=== PATIENT | male | born 1995 | race American Indian/Alaskan Native ===

== ENCOUNTER 2017-07-19 21:59 | Emergency (ER) | payer MEDICAID ==
[2017-07-20 01:26] LABS: Hemoglobin 15.4 gm/dl (11.8-15.2); Mean Corpuscular HGB Conc 33 % (32-34); Mean Corpuscular Hemoglobin 27 pg (28-32); Mean Corpuscular Volume 81 fl (84-94); Platelet Count 208 K/mm3 (140-440); Red Blood Count 5.79 M/mm3 (3.65-5.03); Red Cell Distribution Width 14.2 % (13.2-15.2)
[2017-07-20 01:43] LABS: Alanine Aminotransferase 12 units/L (7-56); Albumin 4.7 g/dL (3.9-5); BUN/Creatinine Ratio 14; Blood Urea Nitrogen 11 mg/dL (9-20); Calcium 9.3 mg/dL (8.4-10.2); Hemolysis Index 29
[2017-07-20 02:11] LABS: Basophils % (Manual) 0 % (0.0-1.8); Total Cells Counted 100
[2017-07-20 02:12] LABS: Platelet Estimate Consistent w Auto
[2017-07-20 02:29] LABS: Bilirubin,Urine NEG (Negative); Blood,Urine NEG (Negative); Color,Urine Yellow (Yellow); Mucus,Urine 3+ /HPF; Protein,Urine <15 mg/dL mg/dL (Negative); Urobilinogen,Urine < 2.0 mg/dL (<2.0)
[2017-07-20 06:11] VITALS: BP 116/75
[2017-07-20] MEDS ORDERED: NACL 0.9% 1000 ML 1,000 ML IV ONE (07:10)
[2017-07-20] MEDS ORDERED: NACL ONE (07:41)
--- NOTE | 2017-07-20 08:04 | Emergency Department Report ---
ED N/V/D HPI - General Chief complaint: Abdominal Pain Stated complaint: ABD PAIN/BLOOD IN STOOL Time Seen by Provider: 07/20/17 06:54 Source: patient Mode of arrival: Ambulatory Limitations: No Limitations - History of Present Illness Initial comments: 21-year-old male without any significant past medical history presents to the Hospital complaining of abdominal pain, nausea, and diarrhea for 3 days. Pain is moderate, cramping and stabbing, intermittent, in the lower abdomen. Worse palpation. No alleviating factors. Patient has been nauseated without vomiting. Yesterday patient had 3-4 episodes of diarrhea with bloody watery stools. Patient denies recent travel, recent antibiotics, fever, family history of IBS or inflammatory bowel disease, or sick contacts. Pt denies receptive anal intercourse - Related Data Previous Rx's Medication Instructions Recorded Last Taken Type Ciprofloxacin HCl [Cipro] 500 mg PO BID #20 tablet 07/20/17 Unknown Rx Promethazine [Phenergan TAB] 25 mg PO Q6HR PRN #15 tab 07/20/17 Unknown Rx metroNIDAZOLE [Flagyl] 500 mg PO Q8HR #30 tablet 07/20/17 Unknown Rx traMADol [Ultram 50 MG tab] 50 mg PO Q6HR PRN #20 tablet 07/20/17 Unknown Rx Allergies Allergy/AdvReac Type Severity Reaction Status Date / Time No Known Allergies Allergy Verified 07/20/17 07:45 ED Review of Systems ROS: Stated complaint: ABD PAIN/BLOOD IN STOOL Other details as noted in HPI Comment: All other systems reviewed and negative ED Past Medical Hx - Past Medical History Previous Medical History?: No - Surgical History Past Surgical History?: Yes Additional Surgical History: tonsils removed - Social History Smoking Status: Current Every Day Smoker Substance Use Type: None - Medications Home Medications: Home Medications Medication Instructions Recorded Confirmed Last Taken Type Ciprofloxacin HCl [Cipro] 500 mg PO BID #20 tablet 07/20/17 Unknown Rx Promethazine [Phenergan TAB] 25 mg PO Q6HR PRN #15 tab 07/20/17 Unknown Rx metroNIDAZOLE [Flagyl] 500 mg PO Q8HR #30 tablet 07/20/17 Unknown Rx traMADol [Ultram 50 MG tab] 50 mg PO Q6HR PRN #20 tablet 07/20/17 Unknown Rx ED Physical Exam - General Limitations: No Limitations - Other Other exam information: General: No limitations, patient is alert in no acute distress Head exam: Atraumatic, normocephalic Eyes exam: Normal appearance, pupils equal reactive to light, extraocular movements intact ENT: Moist mucous membrane, normal oropharynx Neck exam: Normal inspection, full range of motion, no meningismus nontender Respiratory exam: Clear to auscultation bilateral, no wheezes, rales, crackles Cardiovascular: Normal rate and rhythm, normal heart sounds Abdomen: Soft, nondistended, suprapubic tenderness, with normal bowel sounds, no rebound, or guarding Rectal: No external abnormalities, no hemorrhoids, no fissure, no stool on exam Extremity: Full range of motion normal inspection no deformity Back: Normal Inspection, full range of motion, no tenderness Neurologic: Alert, oriented x3, cranial nerves intact, no motor or sensory deficit Psychiatric: normal affect, normal mood Skin: Warm, dry, intact ED Course Vital Signs 07/20/17 07/20/17 07/20/17 01:02 04:24 06:10 Temperature 98.1 F 98.5 F Pulse Rate 80 79 84 Respiratory 18 18 18 Rate Blood Pressure 126/85 143/91 Blood Pressure 116/75 [Right] O2 Sat by Pulse 99 100 100 Oximetry 07/20/17 08:00 Temperature Pulse Rate Respiratory 18 Rate Blood Pressure Blood Pressure [Right] O2 Sat by Pulse Oximetry - Reevaluation(s) Reevaluation #1: 07/20/17 11:27 pain prior to d/c, [place] provided - Consultations Consultation #1: 07/20/17 10:10 case d/w Emely with GI, will consult with Attending ED Medical Decision Making - Lab Data Result diagrams: 07/20/17 01:06 07/20/17 01:06 Lab Results 07/20/17 07/20/17 07/20/17 Range/Units 01:06 01:06 01:54 WBC 10.2 (4.5-11.0) K/mm3 RBC 5.79 H (3.65-5.03) M/mm3 Hgb 15.4 H (11.8-15.2) gm/dl Hct 47.0 H (35.5-45.6) % MCV 81 L (84-94) fl MCH 27 L (28-32) pg MCHC 33 (32-34) % RDW 14.2 (13.2-15.2) % Plt Count 208 (140-440) K/mm3 Add Manual Diff Complete Total Counted 100 Seg Neuts % (Manual) 78.0 H (40.0-70.0) % Band Neutrophils % 0 % Lymphocytes % (Manual) 10.0 L (13.4-35.0) % Reactive Lymphs % (Man) 0 % Monocytes % (Manual) 6.0 (0.0-7.3) % Eosinophils % (Manual) 4.0 (0.0-4.3) % Basophils % (Manual) 0 (0.0-1.8) % Metamyelocytes % 2.0 % Myelocytes % 0 % Promyelocytes % 0 % Blast Cells % 0 % Nucleated RBC % Not Reportable Seg Neutrophils # Man 8.0 H (1.8-7.7) K/mm3 Band Neutrophils # 0.0 K/mm3 Lymphocytes # (Manual) 1.0 L (1.2-5.4) K/mm3 Abs React Lymphs (Man) 0.0 K/mm3 Monocytes # (Manual) 0.6 (0.0-0.8) K/mm3 Eosinophils # (Manual) 0.4 (0.0-0.4) K/mm3 Basophils # (Manual) 0.0 (0.0-0.1) K/mm3 Metamyelocytes # 0.2 K/mm3 Myelocytes # 0.0 K/mm3 Promyelocytes # 0.0 K/mm3 Blast Cells # 0.0 K/mm3 WBC Morphology Not Reportable Hypersegmented Neuts Not Reportable Hyposegmented Neuts Not Reportable Hypogranular Neuts Not Reportable Smudge Cells Not Reportable Toxic Granulation Not Reportable Toxic Vacuolation Not Reportable Dohle Bodies Not Reportable Pelger-Huet Anomaly Not Reportable Antelmo Rods Not Reportable Platelet Estimate Consistent w auto Clumped Platelets Not Reportable Plt Clumps, EDTA Not Reportable Large Platelets Not Reportable Giant Platelets Not Reportable Platelet Satelliting Not Reportable Plt Morphology Comment Not Reportable RBC Morphology Not Reportable Dimorphic RBCs Not Reportable Polychromasia Not Reportable Hypochromasia Not Reportable Poikilocytosis Not Reportable Anisocytosis Not Reportable Microcytosis Not Reportable Macrocytosis Not Reportable Spherocytes Not Reportable Pappenheimer Bodies Not Reportable Sickle Cells Not Reportable Target Cells Not Reportable Tear Drop Cells Not Reportable Ovalocytes Not Reportable Helmet Cells Not Reportable Simon-[place] Bodies Not Reportable [place] Rings Not Reportable Brant Cells Not Reportable Bite Cells Not Reportable Crenated Cell Not Reportable Elliptocytes Not Reportable Acanthocytes (Spur) Not Reportable Rouleaux Not Reportable Hemoglobin C Crystals Not Reportable Schistocytes Not Reportable Malaria parasites Not Reportable Luis Bodies Not Reportable Hem Pathologist Commnt No Sodium 141 (137-145) mmol/L Potassium 4.1 (3.6-5.0) mmol/L Chloride 100.4 (98-107) mmol/L Carbon Dioxide 26 (22-30) mmol/L Anion Gap 19 mmol/L BUN 11 (9-20) mg/dL Creatinine 0.8 (0.8-1.5) mg/dL Estimated GFR > 60 ml/min BUN/Creatinine Ratio 14 % Glucose 90 (75-100) mg/dL Calcium 9.3 (8.4-10.2) mg/dL Total Bilirubin 0.50 (0.1-1.2) mg/dL AST 18 (5-40) units/L ALT 12 (7-56) units/L Alkaline Phosphatase 90 (35-129) units/L Total Protein 7.6 (6.3-8.2) g/dL Albumin 4.7 (3.9-5) g/dL Albumin/Globulin Ratio 1.6 % Urine Color Yellow (Yellow) Urine Turbidity Clear (Clear) Urine pH 5.0 (5.0-7.0) Ur Specific [place] 1.025 (1.003-1.030) Urine Protein <15 mg/dl (Negative) mg/dL Urine Glucose (UA) Neg (Negative) mg/dL Urine Ketones Neg (Negative) mg/dL Urine Blood Neg (Negative) Urine Nitrite Neg (Negative) Urine Bilirubin Neg (Negative) Urine Urobilinogen < 2.0 (<2.0) mg/dL Ur Leukocyte Esterase Neg (Negative) Urine WBC (Auto) 2.0 (0.0-6.0) /HPF Urine RBC (Auto) 3.0 (0.0-6.0) /HPF Urine Mucus 3+ /HPF - Radiology Data Radiology results: report reviewed ct abd pelvis IV contrast FINDINGS: Lung bases: Normal. Liver: Normal. Biliary system: Normal. Pancreas: Normal. Spleen: Normal. Kidneys/ureters/bladder: Normal. Adrenal glands: Normal. Aorta: Normal. Intestines: The GI system is inadequately evaluated on this exam without oral contrast. There is no evidence for obstruction. There may be mild thickening of the rectum but again this is poorly evaluated without contrast agent in the rectum. The remaining bowel loops are grossly normal. Appendix: Normal. Pelvic viscera: Normal. Ascites: None. Adenopathy: None. Musculoskeletal: Normal. IMPRESSION: Limited exam. Question mild inflammation of the rectum. See above. - Medical Decision Making Bloody diarrhea Stool sample obtained with results pending Seen by GI and empiric in bodyaches Cipro and Flagyl for 10 days recommended - Differential Diagnosis gastroenteritis, enteritis, diverticulitis, appendicitis, inflammatory lucio Critical Care Time: No Critical care attestation.: If time is entered above; I have spent that time in minutes in the direct care of this critically ill patient, excluding procedure time. ED Disposition Clinical Impression: Rectal inflammation, Bloody diarrhea Disposition: TO HOME OR SELFCARE Is pt being admited?: No Does the pt Need Aspirin: No Condition: Stable Instructions: Rectal Bleeding (ED), Acute Diarrhea (ED) Additional Instructions: Take the medication as prescribed. Follow-up with the primary clinic or doctror provided. Follow-up with the GI doctor provided within 7-10 days. Return if symptoms worsen as indicated by your discharge instructions. Prescriptions: Ciprofloxacin HCl [Cipro] 500 mg PO BID #20 tablet metroNIDAZOLE [Flagyl] 500 mg PO Q8HR #30 tablet Promethazine [Phenergan TAB] 25 mg PO Q6HR PRN #15 tab PRN Reason: Nausea traMADol [Ultram 50 MG tab] 50 mg PO Q6HR PRN #20 tablet PRN Reason: Pain Referrals: JL POWELL MD [Primary Care Provider] - 3-5 Days [facility] [Provider Group] - 3-5 Days OLEKSANDR DORANTES MD [Staff Physician] - 7-10 days (GI doctor ) Time of Disposition: 11:32
--- NOTE | 2017-07-20 08:59 | Cat Scan Report ---
CT ABDOMEN PELVIS WITH CONTRAST: HISTORY: Lower abdominal pain, bloody stool. COMPARISON: none. TECHNIQUE: Helical CT in 1.25mm intervals following IV contrast. Sagittal and coronal reconstructions. FINDINGS: Lung bases: Normal. Liver: Normal. Biliary system: Normal. Pancreas: Normal. Spleen: Normal. Kidneys/ureters/bladder: Normal. Adrenal glands: Normal. Aorta: Normal. Intestines: The GI system is inadequately evaluated on this exam without oral contrast. There is no evidence for obstruction. There may be mild thickening of the rectum but again this is poorly evaluated without contrast agent in the rectum. The remaining bowel loops are grossly normal. Appendix: Normal. Pelvic viscera: Normal. Ascites: None. Adenopathy: None. Musculoskeletal: Normal. IMPRESSION: Limited exam. Question mild inflammation of the rectum. See above.
[2017-07-20] MEDS ORDERED: FLAGYL PO ONE (10:19)
[2017-07-20] MEDS ORDERED: LEVAQUIN PO ONE (10:19)
--- NOTE | 2017-07-20 10:36 | Gastroenterology Consultation ---
History of Present Illness - Reason for Consult Consult date: 07/20/17 rectal bleeding Requesting physician: ANTONIO ELLIOTT - History of Present Illness Patient is a 21 y/o male with no significant PMH who presented to ED with c/o abdominal pain, nausea, and diarrhea with bloody stools x [address] showed mild inflammation in the rectum. H/H stable (15.4/47.0). This morning pt was resting on stretcher w/o acute distress. VSS. He reports intermittent LLQ abd pain described as sharp non-radiating cramps and 2 BMs this am with scant amount of bright red blood. Reports no rectal pain, pain with defecation, or recent rectal trauma. Nausea is now improved. Denies fever, wt loss, CP, SOB, dizziness, vomiting, hematemesis, melena, or constipation. No recent abx therapy , travel, or ill contacts. Not taking any blood thinning medications. No hx or Fhx of IBD or colon cancer. No previous colonoscopy. Past History Past Medical History: No medical history Past Surgical History: tonsillectomy Social history: smoking Family history: no significant family history Medications and Allergies Allergies Allergy/AdvReac Type Severity Reaction Status Date / Time No Known Allergies Allergy Verified 07/20/17 07:45 Home Medications Medication Instructions Recorded Confirmed Last Taken Type No Known Home Medications [No 07/20/17 07/20/17 Unknown History Reported Home Medications] Review of Systems - Review of Systems All systems: negative Gastrointestinal: abdominal pain, nausea, hematochezia Exam - Constitutional Vital Signs: Temp Pulse Resp BP Pulse Ox 98.5 F 84 18 116/75 100 07/20/17 06:10 07/20/17 06:10 07/20/17 08:00 07/20/17 06:10 07/20/17 06:10 General appearance: no acute distress - EENT Eyes: PERRL, EOM intact ENT: hearing intact - Respiratory Respiratory: bilateral: CTA - Cardiovascular Rhythm: regular Heart Sounds: Present: S1 & S2 - Gastrointestinal General gastrointestinal: Present: soft, tender (mild LLQ TTP), non-distended, normal bowel sounds Rectal Exam: normal exam-external/orifice, normal rectal tone, other (no blood noted) - Integumentary Integumentary: Present: warm, dry - Neurologic Neurological: alert and oriented x3 - Labs CBC & Chem 7: 07/20/17 01:06 07/20/17 01:06 Lab Results: Laboratory Results - last 24 hr 07/20/17 07/20/17 07/20/17 01:06 01:06 01:54 WBC 10.2 RBC 5.79 H Hgb 15.4 H Hct 47.0 H MCV 81 L MCH 27 L MCHC 33 RDW 14.2 Plt Count 208 Add Manual Diff Complete Total Counted 100 Seg Neuts % (Manual) 78.0 H Band Neutrophils % 0 Lymphocytes % (Manual) 10.0 L Reactive Lymphs % (Man) 0 Monocytes % (Manual) 6.0 Eosinophils % (Manual) 4.0 Basophils % (Manual) 0 Metamyelocytes % 2.0 Myelocytes % 0 Promyelocytes % 0 Blast Cells % 0 Nucleated RBC % Not Reportable Seg Neutrophils # Man 8.0 H Band Neutrophils # 0.0 Lymphocytes # (Manual) 1.0 L Abs React Lymphs (Man) 0.0 Monocytes # (Manual) 0.6 Eosinophils # (Manual) 0.4 Basophils # (Manual) 0.0 Metamyelocytes # 0.2 Myelocytes # 0.0 Promyelocytes # 0.0 Blast Cells # 0.0 WBC Morphology Not Reportable Hypersegmented Neuts Not Reportable Hyposegmented Neuts Not Reportable Hypogranular Neuts Not Reportable Smudge Cells Not Reportable Toxic Granulation Not Reportable Toxic Vacuolation Not Reportable Dohle Bodies Not Reportable Pelger-Huet Anomaly Not Reportable Antelmo Rods Not Reportable Platelet Estimate Consistent w auto Clumped Platelets Not Reportable Plt Clumps, EDTA Not Reportable Large Platelets Not Reportable Giant Platelets Not Reportable Platelet Satelliting Not Reportable Plt Morphology Comment Not Reportable RBC Morphology Not Reportable Dimorphic RBCs Not Reportable Polychromasia Not Reportable Hypochromasia Not Reportable Poikilocytosis Not Reportable Anisocytosis Not Reportable Microcytosis Not Reportable Macrocytosis Not Reportable Spherocytes Not Reportable Pappenheimer Bodies Not Reportable Sickle Cells Not Reportable Target Cells Not Reportable Tear Drop Cells Not Reportable Ovalocytes Not Reportable Helmet Cells Not Reportable Simon-[place] Bodies Not Reportable [place] Rings Not Reportable Brant Cells Not Reportable Bite Cells Not Reportable Crenated Cell Not Reportable Elliptocytes Not Reportable Acanthocytes (Spur) Not Reportable Rouleaux Not Reportable Hemoglobin C Crystals Not Reportable Schistocytes Not Reportable Malaria parasites Not Reportable Luis Bodies Not Reportable Hem Pathologist Commnt No Sodium 141 Potassium 4.1 Chloride 100.4 Carbon Dioxide 26 Anion Gap 19 BUN 11 Creatinine 0.8 Estimated GFR > 60 BUN/Creatinine Ratio 14 Glucose 90 Calcium 9.3 Total Bilirubin 0.50 AST 18 ALT 12 Alkaline Phosphatase 90 Total Protein 7.6 Albumin 4.7 Albumin/Globulin Ratio 1.6 Urine Color Yellow Urine Turbidity Clear Urine pH 5.0 Ur Specific [place] 1.025 Urine Protein <15 mg/dl Urine Glucose (UA) Neg Urine Ketones Neg Urine Blood Neg Urine Nitrite Neg Urine Bilirubin Neg Urine Urobilinogen < 2.0 Ur Leukocyte Esterase Neg Urine WBC (Auto) 2.0 Urine RBC (Auto) 3.0 Urine Mucus 3+ Assessment and Plan 1.rectal bleeding 2.abd pain (LLQ) 3.nausea-improved -afebrile -WBC-WNL -H/H stable-15.4/47.0 -currently HD stable with no signs of active bleeding (no blood noted upon rectal exam) -Abd CT showed mild inflammation of the rectum -etiology unclear- possible infection vs inflammation vs other, doubt malignancy -Pt okay to be d/c home on empirical antibiotics (Cipro/Flagyl) x 7-10 days with a f/u appt in 2 weeks to schedule an outpatient endoscopic evaluation with a colonoscopy vs flex sig -discussed need for outpatient f/u with pt and he voiced understanding (office information and card given to pt) -no further GI recommendations at this time -will sign off, please call if needed
[2017-07-20] MEDS ORDERED: NORCO 5/325 PO ONE (11:26)
== END 2017-07-20 11:45 | disposition home or self-care (01) ==
LOC: ED 21:59
DX: K51.411 Inflammatory polyps of colon with rectal bleeding (principal); F17.200 Nicotine dependence, unspecified, uncomplicated
CPT/HCPCS: 36415; 74177; 80053; 81001; 82270; 85007; 85025; 87045; 96360; 99284; J7030; Q9967